=== PATIENT | female | born 1980 | race Caucasian/White ===

== ENCOUNTER 2021-02-14 04:53 | Emergency (ER) | payer BC, MEDICAID ==
[~2021-02-14] VITALS: Ht 172.7 cm; Wt 90.7 kg
[2021-02-14 07:40] VITALS: BP 152/78
== END 2021-02-14 08:05 | disposition home or self-care (01) ==
LOC: ER 04:53 → EDBD 04:53 → EDUNIT# 04:53 → ER 08:02
DX: R55 Syncope and collapse (principal); F12.10 Cannabis abuse, uncomplicated
CPT/HCPCS: 70450; 72192

== ENCOUNTER 2021-02-15 13:11 | Emergency (ER) | payer MEDICAID ==
[~2021-02-15] VITALS: Ht 170.2 cm; Wt 90.7 kg
[2021-02-15] MEDS ORDERED: SODIUM CHLORIDE 0.9% 1,000 ML IV ONE (13:30)
[2021-02-15 13:45] VITALS: BP 120/77
[2021-02-15 13:48] LABS: Urine Bacteria FEW /hpf (None Seen); Urine Blood Negative /uL (Negative); Urine Specific Gravity 1.006 (1.001-1.035); Urine WBC 4 /hpf (0 - 5)
[2021-02-15 13:58] LABS: Basophils # (auto) 0.1 10 ^3/uL (0-0.2); Basophils % (auto) 0.6 % (0.0-2.0); Eosinophils # (auto) 0.2 10 ^3/uL (0-0.8); Lymphocytes # (auto) 1.3 10 ^3/uL (0.4-5.4); Monocytes # (auto) 1.2 10 ^3/uL (0-1.3)
[2021-02-15 14:00] LABS: Eosinophils % (auto) 1.6 % (0.0-7.0); Hematocrit 34.2 % (36.0-46.0); Lymphocytes % (auto) 10.8 % (10.0-50.0); Mean Corpuscular Hemoglobin 26.8 pg (28.0-32.0); Mean Corpuscular Hgb Conc. 32.1 g/dL (32.0-36.0); Mean Corpuscular Volume 83.3 fL (80.0-100.0); Monocytes % (auto) 10.2 % (0.0-12.0); Neutrophils # (auto) 9.2 10 ^3/uL (1.6-8.6); Neutrophils % (auto) 76.8 % (37.0-80.0); Platelet Count (auto) 524 10^3/uL (140-450); Red Cell Distribution Width 17.9 % (11.8-14.3); White Blood Cell 11.9 10^3/uL (4.4-10.8)
[2021-02-15 14:13] LABS: Amphetamine Screen, Urine POSITIVE (NEGATIVE); Barbiturate Scree,Urine NEGATIVE (NEGATIVE); Benzodiazephine Screen, Urine NEGATIVE (NEGATIVE); Cannabinoid Screen, Urine NEGATIVE (NEGATIVE); Cocaine Screen, Urine NEGATIVE (NEGATIVE); Opiate Scree,Urine NEGATIVE (NEGATIVE); Phencyclidine Screen, Urine NEGATIVE (NEGATIVE)
[2021-02-15 14:20] LABS: Albumin 3.5 g/dL (3.4-5.0); Anion Gap 9 (5-15); Blood Urea Nitrogen 12 mg/dL (7-18); Calcium 8.8 mg/dL (8.5-10.1); Carbon Dioxide 21 mmol/L (21-32); Chloride 104 mmol/L (98-107); Glucose 90 mg/dL (74-106); Sodium 134 mmol/L (136-145)
[2021-02-15 14:26] LABS: Alanine Aminotransferase 15 U/L (13-56); Alkaline Phosphatase 77 U/L (45-117); Aspartate Aminotransferase 31 U/L (15-37); BUN/Creatinine Ratio 17.6; Bilirubin, Total 0.4 mg/dL (0.2-1.0); Blood Alcohol < 3.0 mg/dL (0-5); GFR African American 123 mL/min; GFR Non-African American 102 mL/min; Total Protein 7.9 g/dL (6.4-8.2)
== END 2021-02-15 15:14 | disposition home or self-care (01) ==
LOC: EDBD 13:11 → ER 13:11
DX: T40.2X1A Poisoning by other opioids, accidental (unintentional), initial encounter (principal); F15.10 Other stimulant abuse, uncomplicated; F12.10 Cannabis abuse, uncomplicated; Y92.89 Other specified places as the place of occurrence of the external cause
CPT/HCPCS: 36415; 80053; 80307; 80320; 81001; 84484; 85025; 96360; 96361; 99283; J7030

== ENCOUNTER 2023-09-26 17:58 | Emergency (ER) | payer BC, MEDICAID ==
[~2023-09-26] VITALS: Ht 170.2 cm; Wt 82.0 kg
[2023-09-26] MEDS ORDERED: NALOXONE HCL 0.4 MG/ML VIAL IM ONE (18:30)
[2023-09-26] MEDS ORDERED: diphenhdrAMINE HCL 50 MG/1 ML VL ONE (19:01)
[2023-09-26] MEDS ORDERED: LORazepam 2MG/ML-1ML VIAL IV ONE ×2 (19:15→22:45)
[2023-09-26] MEDS ORDERED: diphenhdrAMINE HCL 50 MG/1 ML VL IV ONE (19:15)
[2023-09-26 19:30] VITALS: PULSE 120; RESP 41; O2SAT 99
[2023-09-26 20:01] LABS: Hematocrit 34.8 % (36.0-46.0); Hemoglobin 10.3 g/dL (12.2-16.2); Mean Corpuscular Hemoglobin 23.3 pg (28.0-32.0); Mean Corpuscular Hgb Conc. 29.5 g/dL (32.0-36.0); Mean Corpuscular Volume 78.9 fL (80.0-100.0); Red Blood Cells 4.41 10^6/uL (4.0-5.20)
[2023-09-26 20:06] LABS: White Blood Cell 31.3 10^3/uL (4.4-10.8)
[2023-09-26 20:07] LABS: Basophils % (manual) 0 (0.0-2.0); Blast Cells 0; Eosinophils % (manual) 0 (0-7); Metamyelocytes % 0; Myelocytes % 0; Promyelocytes % 0; Reactive Lymphocytes 0
[2023-09-26] MEDS ORDERED: SODIUM CHLORIDE 0.9% 2,000 ML IV ONE (20:10)
[2023-09-26 20:14] LABS: Alanine Aminotransferase 20 U/L (7-40); Albumin 3.9 g/dL (3.2-4.8); Alkaline Phosphatase 93 U/L (46-116); Anion Gap 30.00001 (5-15); Aspartate Aminotransferase 38 U/L (13-40); Blood Alcohol 3.6 mg/dL (<10); Blood Urea Nitrogen 22 mg/dL (9-23); Calcium 8.8 mg/dL (8.5-10.1); Chloride 102 mmol/L (98-107); Glucose 75 mg/dL (74-106); Potassium 3.1 mmol/L (3.5-5.1); Sodium 142 mmol/L (136-145)
[2023-09-26 20:15] LABS: Bilirubin, Total 0.3 mg/dL (0.2-1.0); Total Protein 6.8 g/dL (5.7-8.2)
[2023-09-26] MEDS ORDERED: SODIUM CHLORIDE 0.9% 1,000 ML IV ONE ×2 (20:15)
[2023-09-26 20:22] LABS: Carbon Dioxide < 10 mmol/L (20-30); Lactic Acid w/Reflex 2.1 mmol/L (0.4-2.0)
[2023-09-26] MEDS ORDERED: cefTRIAXone 1GM/50ML D5W 50 ML IV ONE (20:30)
[2023-09-26] MEDS ORDERED: AZITHROMYCIN 500MG/ 250ML 250 ML IV ONE (20:30)
[2023-09-26 20:41] LABS: Urine Bacteria NONE SEEN /hpf (None Seen); Urine Blood TRACE /uL (Negative); Urine Clarity Clear (Clear); Urine Color Yellow (Yellow); Urine Hyaline Cast MANY /lpf (0 - 2); Urine Mucus FEW (None Seen); Urine Protein, UAD 1+ (Negative); Urine Specific Gravity 1.017 (1.001-1.035); Urine WBC 2 /hpf (0 - 5); Urine pH 5.5 (5.0-8.0)
[2023-09-26 20:54] LABS: Amphetamine Screen, Urine Neg (NEGATIVE); Barbiturate Scree,Urine Neg (NEGATIVE); Benzodiazephine Screen, Urine Neg (NEGATIVE); Cocaine Screen, Urine Pos (NEGATIVE); Opiate Scree,Urine Neg (NEGATIVE); Phencyclidine Screen, Urine Neg (NEGATIVE)
[2023-09-26 20:55] LABS: Cannabinoid Screen, Urine Neg (NEGATIVE)
[2023-09-26 21:03] LABS: Band Neutrophils % (manual) 9; Lymphocytes % (manual) 7 (10.0-50.0); Monocytes % (manual) 4 (0-12)
[2023-09-26 21:04] LABS: Platelet Estimate Increased
[2023-09-26 23:06] LABS: INR 1.34 (0.9-1.15); Partial Thromboplastin Time 43.2 SEC (24.5-34.5); Prothrombin Time 13.8 sec (9.3-11.8)
[2023-09-26] MEDS ORDERED: MIDAZOLAM DRIP 50 mg/50mL 50 ML IV ONE (23:27)
[2023-09-26] MEDS ORDERED: ETOMIDATE (2MG/ML) 20ML VIAL IV ONE ×2 (23:27→23:45)
[2023-09-26] MEDS ORDERED: ROCURONIUM 10MG/ML 10ML VIAL IV ONE ×2 (23:28→23:45)
[2023-09-26 23:37] VITALS: BP 96/47; PULSE 101; RESP 18; O2SAT 100
[2023-09-26] MEDS ORDERED: MIDAZOLAM DRIP 50 mg/50mL 50 ML IV SCH (23:45)
[2023-09-27 00:32] VITALS: BP 96/47; PULSE 101; RESP 18; TEMP 98.3; O2SAT 100
[2023-09-27] MEDS ORDERED: SODIUM BICARBONATE 8.4 % INJ 50ML VIAL IV ONE ×2 (00:45→06:24)
[2023-09-27] MEDS ORDERED: POTASSIUM CHL 20MEQ/100ML 100 ML IV ONE (00:45)
[2023-09-27 01:35] LABS: Base Excess -30.4 mmol/L (-2.0-2.0)
[2023-09-27 01:38] VITALS: BP 102/33; PULSE 100; RESP 18; O2SAT 100
[2023-09-27 03:56] LABS: Salicylate < 3.0 mg/dL (2.8-20.0)
[2023-09-27 04:10] VITALS: BP 104/35; PULSE 101; RESP 18; O2SAT 100
[2023-09-27 05:50] VITALS: BP 95/35; PULSE 103; RESP 18; O2SAT 100
[2023-09-27 06:00] LABS: Base Excess -26.9 mmol/L (-2.0-2.0)
[2023-09-27] MEDS ORDERED: SODIUM BICARBONATE 50ML VIAL 150 ML in SOD CHL 0.45% 1,000 ML IV ONE (06:15)
[2023-09-27 07:10] VITALS: BP 105/30; PULSE 97; RESP 18; TEMP 97.8; O2SAT 100
[2023-09-27] MEDS ORDERED: NOREPINEPHRINE 8 MG/250ML KIT 250 ML IV ONE (07:29)
[2023-09-27] MEDS ORDERED: NOREPINEPHRINE 8 MG/250ML KIT 250 ML IV SCH (07:45)
== END 2023-09-27 07:44 | disposition short-term general hospital (02) ==
LOC: ER 17:58 → EDBD 17:58 → ER 09-27 07:44
DX: G93.41 Metabolic encephalopathy (principal); R10.2 Pelvic and perineal pain; F12.10 Cannabis abuse, uncomplicated
CPT/HCPCS: 31500; 36415; 36556; 36600; 70450; 71045; 71250; 72125; 74176; 80053; 80307; 80320; 80329; 81001; 82805; 83605; 83880; 84484; 84702; 85007; 85027; 85610; 85730; 87070; 87077; 87186; 87205; 96361; 96365; 96366; 96368; 96372; 96375; 96376; 99285; J0456; J0696; J1200; J2060; J2250; J2310; J3480; 94002